=== PATIENT | female | born 1975 | race Caucasian/White ===

== ENCOUNTER 2018-05-13 14:09 | Emergency (ER) | payer OTHER ==
[~2018-05-13] VITALS: Ht 162.6 cm; Wt 75.7 kg
[2018-05-13] MEDS ORDERED: COZAAR50 MG PO (14:32)
== END 2018-05-13 20:51 | disposition home or self-care (01) ==
LOC: ER 14:09
DX: J40 Bronchitis, not specified as acute or chronic (principal)